=== PATIENT | female | born 1955 | race Caucasian/White ===

== ENCOUNTER 2021-01-11 05:38 | Emergency (ER) | payer MEDICARE ==
[~2021-01-11] VITALS: Ht 167.6 cm; Wt 81.0 kg
[2021-01-11] MEDS ORDERED: METOPROLOL SUCC25 MG (05:56)
[2021-01-11] MEDS ORDERED: LIPITOR40 MG PO (05:57)
[2021-01-11] MEDS ORDERED: PRILOSEC OTC20 MG PO (05:58)
[2021-01-11] MEDS ORDERED: ESTRACE0.5 MG PO (05:59)
[2021-01-11] MEDS ORDERED: VALTREX500 MG PO (05:59)
[2021-01-11] MEDS ORDERED: PERCOCET 5-3251 EACH PO (06:01)
[2021-01-11] MEDS ORDERED: CYCLOBENZAPRINE10 MG PO (06:04)
== END 2021-01-11 06:13 | disposition home or self-care (01) ==
LOC: ED 05:38
DX: M43.6 Torticollis (principal); Z87.891 Personal history of nicotine dependence; Z88.7 Allergy status to serum and vaccine; Z79.899 Other long term (current) drug therapy
CPT/HCPCS: 99283

== ENCOUNTER 2021-10-11 05:52 | Day surgery (SDC) | payer MEDICARE ==
[~2021-10-11] VITALS: Ht 167.6 cm; Wt 80.5 kg
[~2021-10-11 05:52] MED LIST: CYCLOBENZAPRINE10 MG PO; ESTRACE0.5 MG PO; LIPITOR40 MG PO; METOPROLOL SUCC25 MG; PERCOCET 5-3251 EACH PO; PRILOSEC OTC20 MG PO; VALTREX500 MG PO
[2021-10-11] MEDS ORDERED: CYMBALTA60 MG PO (06:14)
[2021-10-11] MEDS ORDERED: MAGNESIUM30 MG PO (06:15)
--- NOTE | 2021-10-11 07:13 | NUR ---
[id number]: MINDY, BREAST SPECIALIST CALLED FOR CAMISOLE FITTING; MINDY OUT OF OFFICE TODAY DUE TO ILLNESS. 0710: IMAGING TRANSPORTS PT VIA WC AND WARM BLANKETS TO THEIR DEPT AT THIS TIME. PT IV SL.
--- NOTE | 2021-10-11 08:01 | NUR ---
PT BACK TO DS RM 3, LEFT HAND IV FLUSHED EASILY WITH 10 MLS NS AND HOOKED TO LR CONT. LEGS ELEVATED IN BED TO HELP WITH LOWER BACK PAIN. LILO HUGGER ON WARM WITH WARM BLANKETS. VERBAL ORDERS RECEIVED FROM WILIAN OAKLEY FOR PO PAIN MEDICATION. PT STATES THAT SHE TOLERATES PERCOCET ON EMPTY STOMACH DAILY FOR CHRONIC PAIN.
--- NOTE | 2021-10-11 08:51 | NUR ---
CHECKING ON PT-SHE HAS BEEN TAKEN TO IMAGING. WILL FOLLOW NEEDED
--- NOTE | 2021-10-11 12:10 | NUR ---
10/11/21 1210 Parul Lazcano 1143 PT ARRIVED TO PACU ON 10L VIA MASK WITH ORAL AIRWAY IN PLACE. RESP EVEN AND UNLABORED. VSS. 1146 PT WAKES AND ORAL AIRWAY REMOVED. PT ENCOURAGED TO DEEP BREATH AND COUGH. PT REPORTS PAIN /10 AND PT GRMACING. 1148 O2 REMOVED. 1153 PAIN MEDICATION GIVEN PER EMAR, HOB INCREASED. PT REPORTS CHRONIC PAIN AT HOME NO BETTER THEN 4-5 WITH PAIN MEDICATION. 1202 PT REPORTS NO CHANGE IN PAIN, 07/08. 1205 PT ASLEEP AND O2 DECREASED TO 80S. PT WAKES AND SIPPING WATER. DEEP BREAHTING ENCOURAGED AND O2 INCREASED TO HIGH 90S. PAIN MEDICATION AND BREATHING EDUCATION GIVEN. 1209 PT RESTING IN BED AND REPORTS NO CHANGE IN PAIN. ICE PLACED PER REQUEST AND .
[2021-10-11] MEDS ORDERED: HYDROMORPHONE HC4 MG PO (12:14)
[2021-10-11] MEDS ORDERED: IBUPROFEN600 MG PO (12:14)
[2021-10-11] MEDS ORDERED: ACETAMINOPHEN500 MG PO (12:15)
--- NOTE | 2021-10-11 12:56 | NUR ---
PT ARRIVES TO DS RM 3 AWAKE AND ALERT FROM PACU. PT STATES PAIN IN RIGHT BREAST 8/10 WHEN ASKED AND DENIES NAUSEA. PT TOLTERATES PO WELL WITH NO NAUSEA. ICE TO RIGHT BREAST. DC CRITERIA EXPLAINED AND CALL LIGHT WITHIN REACH.
--- NOTE | 2021-10-11 13:59 | NUR ---
PT SITTING UPRIGHT ON PERSONAL CELLPHONE. PT TOLERATES 100% OF LUNCH AND DENIES ANY NAUSEA. PT STATES PAIN IS "BETTER" AND RATES 6/10. PT FRIEND COMES TO HOSPITAL TO MANAGER DIALYSIS PAIN PRESCRIPTION AND TAKE TO PHARMACY PER PT REQUEST. CALL LIGHT WITHIN REACH.
--- NOTE | 2021-10-11 15:46 | NUR ---
[id number]: PT USES CALL LIGHT TO ALERT DS STAFF OF URGE TO VOID. PT SITS AT SIDE OF BED PRIOR TO STANDING, DENIES NAUSEA OR DIZZINESS. PT AMBULATES STEADY WITH RN ASSIST, ABLE TO VOID APPROX 550 MLS BRIGHT YELLOW URINE. BACK TO DS RM 3 TO GET DRESSED. ICE BAG REFILLED. [id number]: PT CONTACTS SIOMARA MARTINEZ FOR SAFE RIDE HOME. DC INSTRUCTIONS PRESENTED TO PT AND BROTHER. PT DC VIA WC FROM DS RM 3 TO BROTHER'S VEHICLE IN PARKING LOT TO HOME.
--- NOTE | 2021-10-12 10:08 | OR ---
[facility] [address], [place] [address] Signed DATE OF OPERATION: 10/11/2021 SURGEON: Leatha Plaza MD PREOPERATIVE DIAGNOSES: 1. Right medial upper infiltrating ductal breast carcinoma. 2. History of bilateral breast augmentation (2002). POSTOPERATIVE DIAGNOSES: 1. Right medial upper infiltrating ductal breast carcinoma. 2. History of bilateral breast augmentation (2002). 3. Negative sentinel lymph node biopsies x2 on frozen (Dr. Tee). PROCEDURES: 1. Right breast injection of methylene blue dye for sentinel lymph node identification. 2. Right deep axillary lymph node biopsy x2. 3. Right needle localized partial mastectomy (upper inner aspect). ANESTHESIA: General LMA; Yeison Figueroa CRNA INDICATIONS: This 66-year-old white woman is a patient of Dr. Karin Do, and has undergone bilateral breast implantation (breast augmentation) in 2002. She has had no problem with her implants. She is noted to have on mammography an abnormality in the upper medial aspect of the right breast. Ultrasound was performed and ultimately an ultrasound-guided core biopsy performed by Dr. Tee showing the finding to be infiltrating ductal breast carcinoma, grade 2/3. There was no associated DCIS and receptors were positive (ER/VA positive). Clinical exam shows no sign of axillary adenopathy and there is no palpable mass in the right breast or elsewhere. Preoperative chest x-ray was normal. She has reviewed with me her options of management and at this time we anticipate needle localized partial mastectomy with postoperative radiation therapy. Additionally, sentinel lymph node biopsies will be obtained with both radionuclide and methylene blue dye injection techniques. The risks of bleeding, infection, need for additional surgery, or treatment including chemotherapy in addition to radiation therapy depending on the pathologic findings were all reviewed in detail. Additionally, special risks regarding post radiation capsular Electronically Signed By: LEATHA PLAZA MD 10/12/21 1008 PATIENT NAME: CHRIS WEST OPERATIVE REPORT DATE OF : 55 REPORT #: [id number] PHYSICIAN: LEATHA PLAZA MD PCP: KARIN DO MD REPORT IS CONFIDENTIAL AND NOT TO BE RELEASED WITHOUT AUTHORIZATION [facility] [address], [place] [address] Signed contracture of the right breast related to the implant was reviewed. I have reviewed the case with Dr. Erich Gorman previously as well. He is the anticipated provider of postoperative radiation therapy of course. Understanding all of that she wished to proceed with operation. FINDINGS: Good radionuclide uptake was taken into the right axilla and good uptake of methylene blue dye as well. Two lymph nodes, one larger than the other were excised and frozen pathology by Dr. Tee showed no evidence of metastatic disease. Wire localization was required as the lesion was nonpalpable. The needle entered through the upper outer aspect on the right, extended to the upper medial portion of the breast. Wide resection was undertaken of the breast tissue with needle guidance and excision was clinically negative for the residual disease. Frozen pathology of the sentinel lymph node showed no evidence of metastatic disease. The breast tissue excised with specimen radiograph confirmed that the preoperative marker was in the specimen and the nodule itself was identified as well and completely resected. DESCRIPTION OF PROCEDURE: The patient was brought to the operating room, given a general anesthetic by LMA technique. Preoperative antibiotic Ancef was given. Sequential compression device stockings used and heparin subcutaneously administered. 2 mL of methylene blue dye was injected in the subepithelial space in the 11 oclock position of the right areola. A circumareolar incision from prior surgical intervention was noted. An inframammary incision was noted too, no doubt related to prior breast implantation. The right breast and axilla were prepared with a Betadine based solution and draped sterilely. Interrogation of the right axilla with the steril covered C-Trak probe was undertaken showing a strong signal in the mid axilla. A small transverse incision was made and dissection carried to subcutaneous tissue with electrocautery and blunt dissection. Separation of the axillary soft tissue with a tonsil clamp demonstrated blue lymphatics indicating good uptake of the dye into the axillary lymph nodes. Dissection was followed along the blue lymphatics identifying a 2 cm lymph node. Another small lymph node was associated with it. Both were excised in continuity with electrocautery and hemostasis secured with clips. The two lymph nodes were marked and passed for frozen pathology subsequently noted to be negative for metastatic disease. Additional examination of the axilla did not show strong signal for radionuclide. Further dissection was undertaken with blunt dissection showing no additional blue lymphatics and on that basis, the axillary wound was packed with laparotomy pad and plans made for excision of the primary tumor. The wire entered the superior lateral aspect of the breast and was directed in the deep Electronically Signed By: LEATHA PLAZA MD 10/12/21 1008 PATIENT NAME: CHRIS WEST OPERATIVE REPORT DATE OF : 55 REPORT #: [id number] PHYSICIAN: LEATHA PLAZA MD PCP: KARIN DO MD REPORT IS CONFIDENTIAL AND NOT TO BE RELEASED WITHOUT AUTHORIZATION [address] [address] Signed medial superior portion. A transverse incision was made along the line of skin tension to the medial aspect of the midline areola. Dissection was carried through the subcutaneous tissue with electrocautery and using blunt dissection, the wire delivered into the wound. An Allis clamp was applied to the wire and the parenchyma and with meticulous care, a conical excision was undertaken following the wire both deeply and medially. Wide resection deeply and medially was required to totally encompass the area in question of the wire. Once excised, the specimen was marked with a short stitch superior and a long stitch laterally. Irrigation was undertaken in the depths of the wound. The muscular capsule over the breast implant was easily identified and completely unharmed. By this point, the frozen pathology report from axillary lymph nodes was returned showing no evidence of metastatic disease. Shortly thereafter, the specimen xray report confirmed that the nodule and the marking clip had been excised fully in the specimen submitted. Irrigation was undertaken with sterile water. There was no sign of untoward bleeding. The wound was closed with interrupted 2-0 Vicryl in the deep parenchymal layer and the skin closed with running subcuticular 3-0 Vicryl. In the axilla, similar closure was undertaken once hemostasis was assured. Steri-Strips were applied to both wounds as were Acticoat dressings. The patient was ultimately extubated and transferred back to the recovery room in good condition having suffered no known complications. Blood loss was minimal, probably less than 10 mL in aggregate. MD NABIL Lorenzana/CASSY /[id number] cc: Dr. Karin Tee [facility] Anni Mane MD Electronically Signed By: LEATHA PLAZA MD 10/12/21 1008 PATIENT NAME: CHRIS WEST OPERATIVE REPORT DATE OF : 55 REPORT #: [id number] PHYSICIAN: LEATHA PLAZA MD PCP: KARIN DO MD REPORT IS CONFIDENTIAL AND NOT TO BE RELEASED WITHOUT AUTHORIZATION [address] [place], [place] [address] Signed Copies: ANNI MANE MD ~ Electronically Signed By: LEATHA PLAZA MD 10/12/21 1008 PATIENT NAME: CHRIS WEST OPERATIVE REPORT DATE OF : 55 REPORT #: [id number] PHYSICIAN: LEATHA PLAZA MD PCP: KARIN DO MD REPORT IS CONFIDENTIAL AND NOT TO BE RELEASED WITHOUT AUTHORIZATION
--- NOTE | 2021-10-13 15:14 | PATH ---
[facility] [address] [facility] [place], [place] [address] Signed SPECIMEN(S): A SENTINEL LYMPH NODE 1 AND 2 SPECIMEN(S): B LUMPECTOMY RIGHT BREAST SPECIMEN SOURCE: A. SENTINEL LYMPH NODE 1 AND 2 B. LUMPECTOMY RIGHT BREAST CLINICAL HISTORY: Infiltrating duct carcinoma (stitch pavon nodes). Right breast lumpectomy with needle localization, SLN biopsy with possible axillary dissection with IOPC. Specimen Time to Fixation- 10/11/2021 11:30:00 AM FROZEN SECTION DIAGNOSIS: A. Paloma lymph node #1 and #2:Two lymph nodes, negative for metastatic carcinoma. (Dr. Tee, 10/11/2021 at 1128 hrs.) FB (under the direct supervision of a pathologist) The Gross Description was prepared using a voice recognition system. The report was reviewed for accuracy; however, sound-alike word errors, addition and/or deletions may occur. If there is any question about this report, please contact Client Services. FINAL PATHOLOGIC DIAGNOSIS: A. Lymph nodes, sentinel #1 and #2, excision: - Three lymph nodes, negative for metastatic carcinoma (0/3). B. Breast, right, lumpectomy: - Invasive ductal carcinoma with the following features: - Tumor site: 1 o'clock (per prior biopsy report). - Tumor size: 8 mm in greatest dimension, see comment. - Histologic type: Invasive carcinoma of no special type (ductal). - Histologic grade: - Glandular differentiation score: 2. - Nuclear pleomorphism: Score 2. - Mitotic rate: Score 1. - Overall grade: 1 of 3 (total score 5 of 9). - Tumor focality: Single focus of invasive carcinoma. - Associated in situ component: Absent. - Margins: Uninvolved by invasive carcinoma. - Distance to closest margin: 7 mm, anterior margin. - Regional lymph nodes (includes part A): - Uninvolved by tumor cells. PATIENT NAME: SOL LEWIS PATHOLOGY DATE OF : 55 REPORT #: [id number] PHYSICIAN: DOTTIE MONTELONGO PCP: FLORENCE DO MD REPORT IS CONFIDENTIAL AND NOT TO BE RELEASED WITHOUT AUTHORIZATION [facility] [address] [place], [place] [address] Signed - Total number of lymph nodes examined: 3. - Number of sentinel lymph nodes examined: 3. - Treatment effect: No known presurgical therapy. - Lymph vascular invasion: Not identified. - Microcalcifications: Present in invasive carcinoma. - Additional pathologic findings: Biopsy site changes, fat necrosis. - Ancillary studies: Please refer to studies previously performed ([id number]) which were reported as ER positive, SD positive, HER2 negative by IHC. - Surgical pathology stage: pT1b pN0 (sn). COMMENT: A) Immunohistochemical stains for AE1/AE3 are performed on multiple blocks and support the above interpretation. B) Tumor size measurement is based on microscopic review in conjunction with the reported radiologic findings. BRP:LUPEF:cml:C1NR MICROSCOPIC EXAMINATION: Histologic sections of all submitted blocks are examined by light microscopy. These findings, together with the gross examination, support the pathologic diagnosis. GROSS DESCRIPTION: Two specimens are received in two containers, labeled "LewisSol." A. The specimen, labeled "Sol Lewis, sentinel lymph nodes #1 and #2," is received fresh for frozen section diagnosis and consists of a 3.8 x 2.1 x 1.1 cm oriented portion of yellow-philippe fibroadipose tissue. Two sutures boni the possible lymph nodes that measure 1.7 and 1.3 cm in greatest dimension. One lymph node is inked for distinction. Portions of the lymph node are similar from frozen section resubmitted as received in cassettes A1 and A2. The remainder of the lymph node tissue submitted in cassette A3. Only adipose tissue remains within the container. B. The specimen, labeled "Sol Lewis," and designated on the requisition "lump right breast long stitch is lateral, short stitch is superior," is received in formalin and consists of a 50 gram oriented portion of yellow-philippe fibroadipose tissue that is 7.4 x 6.3 x 4.4 cm and has a metal localization wire that enters laterally. A short suture is present and identifies the superior margin; a long suture identifies the lateral margin. PATIENT NAME: SOL LEWIS PATHOLOGY DATE OF : 55 REPORT #: [id number] PHYSICIAN: DOTTIE PATHOLOGY PCP: FLORENCE DO MD REPORT IS CONFIDENTIAL AND NOT TO BE RELEASED WITHOUT AUTHORIZATION [facility] [address] [place] [address] Signed The specimen is inked as follows: superior - blue; inferior - green; medial - red; lateral - orange; anterior - yellow; and posterior - black. The specimen is serially sectioned from medial to lateral into 14 slices revealing a 1.0 x 1.2 x 0.9 cm white stellate mass, present in slices 8-10 with an adjacent biopsy cavity in slices 10-11. The mass is, 1.1 cm from the anterior soft tissue margin, 1.0 cm from the posterior soft tissue margin, 2.2 cm from the superior soft tissue margin, 1.8 cm from the inferior soft tissue margin, 3.4 cm from the medial soft tissue margin, and 1.9 cm from the lateral soft tissue margin. A metallic junaid is present in slice 10 within the biopsy cavity Approximately 95% of the remaining specimen is a yellow-philippe greasy adipose tissue and 5% is a white-philippe delicate fibrous tissue. [employer] sections are submitted in 10 cassettes. Cassette summary: (B1-B3) slice nine with mass (B4-B6) slice 10 with mass and adjacent biopsy cavity (B7) fibroadipose tissue, medial to mass, slice seven (B8) fibroadipose tissue, lateral to mass, slice 11 (B9) slice one, medial soft tissue resection margin, perpendicular (B10) slice 14, lateral soft tissue resection margin, perpendicular. Cold ischemia time: 14 minutes Approximate Formalin time: 12-24 hours. ADDITIONAL NOTES: Immunohistochemical and/or in situ hybridization studies were performed on this case with the appropriate positive controls that react as expected. This test was developed and its performance characteristics determined by [facility] [employer]. It has not been cleared or approved by the U.S. Food and Drug Administration. The FDA has determined that such clearance or approval is not necessary. This test is used for clinical purposes. It should not be regarded as investigational or for research. [facility] is certified under the Clinical Laboratory Improvement Amendments of 1988 (CLIA) as qualified to perform high complexity clinical laboratory testing. This assay has not been validated for specimens that have been decalcified. PERFORMING LABORATORY: The technical component was performed by [facility], [address] [place] [address] (Cdl Program Coordinator: Chelsie De Luna MD; CLIA# [id number]). PATIENT NAME: SOL LEWIS PATHOLOGY DATE OF : 55 REPORT #: [id number] PHYSICIAN: DOTTIE MONTELONGO PCP: FLORENCE DO MD REPORT IS CONFIDENTIAL AND NOT TO BE RELEASED WITHOUT AUTHORIZATION [place] [id number] [place] [address] Signed Frozen section performed at [facility], [address] [place] [address] (CLIA# [id number]). Professional interpretation was performed by [facility], [address] [place] [address] (CLIA# [id number]). Diagnostician: Garcia Tee MD Pathologist Electronically Signed 10/13/2021 Copies: ~ PATIENT NAME: SOL LEWIS PATHOLOGY DATE OF : 55 REPORT #: [id number] PHYSICIAN: DOTTIE MONTELONGO PCP: FLORENCE DO MD REPORT IS CONFIDENTIAL AND NOT TO BE RELEASED WITHOUT AUTHORIZATION
== END 2021-10-11 15:05 | disposition home or self-care (01) ==
LOC: DS 05:52 → US 07:00 → EDSTATUS 07:00 → DS 15:05
PROVIDERS: ATTEND Surgery
PROC: 0HBT0ZZ Excision of Right Breast, Open Approach (ICD-10-PCS; principal; 2021-10-11 08:45)
PROC: 07B50ZX Excision of Right Axillary Lymphatic, Open Approach, Diagnostic (ICD-10-PCS; 2021-10-11 08:45)
DX: C50.211 Malignant neoplasm of upper-inner quadrant of right female breast (principal); K21.9 Gastro-esophageal reflux disease without esophagitis; F32.A Depression, unspecified; F17.210 Nicotine dependence, cigarettes, uncomplicated; Z88.1 Allergy status to other antibiotic agents; Z98.82 Breast implant status
CPT/HCPCS: 19285; 76098; 77065; J0131; J0690; J1100; J1644; J1885; J2001; J2250; J2405; J2704; J3010; J7121; Q9968

== ENCOUNTER 2022-02-08 07:50 | Day surgery (SDC) | payer MEDICARE ==
[~2022-02-08] VITALS: Ht 167.6 cm; Wt 80.9 kg
[~2022-02-08 07:50] MED LIST changes: +ACETAMINOPHEN500 MG PO; +ANASTROZOLE1 MG PO; +CYMBALTA60 MG PO; +ESTRADIOL0.5 MG PO; +HYDROMORPHONE HC4 MG PO; +IBUPROFEN600 MG PO; +MAGNESIUM30 MG PO; +MULTI VITAMIN1 EACH PO
[2022-02-08] MEDS ORDERED: VITAMIN D-40010 MCG PO (08:07)
--- NOTE | 2022-02-08 09:20 | NUR ---
02/08/22 0920 Maria Luisa Portillo 0914 PATIENT ARRIVES TO PACU UNRESPONSIVE TO VERBAL STIMULI. RESP EVEN AND UNLABORED, MASK AT 6 LITERS.
--- NOTE | 2022-02-08 15:55 | OR ---
[facility] [address] [place], [place] [address] Signed DATE OF OPERATION: 02/08/2022 SURGEON: Cheryl Ochoa MD PREOPERATIVE DIAGNOSES: 1. Personal history of colonic polyps in 2013. 2. Lifelong chronic constipation. 3. Occasional diarrhea. POSTOPERATIVE DIAGNOSIS: A 4 mm polyp at 7 cm. PROCEDURE: Colonoscopy with hot biopsy. ESTIMATED BLOOD LOSS: None. INDICATIONS: Sol is a 66-year-old female, asked to see me for her third colonoscopy. She previously lived in [place]. She has chronic back issues and has to take Percocet on a daily basis along with marijuana cream. She also has a history of paroxysmal supraventricular tachycardia that was ablated twice. Therefore, she is in need of monitored anesthesia care. Her first colonoscopy came in [address] Becker and was told she had colonic polyps removed. Dr. Becker repeated the colonoscopy in 2017 at the age of 61 and removed additional hyperplastic polyps. Unfortunately, we only have sparse records. Sol also describes lifelong constipation, occasionally she has diarrhea. There is no family history of colon cancer or polyps. In the office, I gave her a pamphlet on colon polyps and cancer as well as colonoscopy. She understands the nature of the colonoscopy. There is risk including, but not limited to gas bloating, crampy abdominal pain, bleeding, perforation requiring surgery, and missed diagnosis. She had expressed understanding and wished to proceed. DESCRIPTION OF PROCEDURE: Sol was taken into our endoscopy suite and placed in the left lateral decubitus position. She was given monitored anesthesia care per our nurse director fundraising. A digital rectal exam was performed and this was unremarkable. The adult colonoscope was introduced and advanced under direct visualization of the camera. It took a few minutes to get around into her cecum. Her prep was quite good. We could easily see the appendiceal orifice and the ileocecal valve. The scope was then slowly withdrawn. We Electronically Signed By: CHERYL OCHOA MD 02/08/22 1555 PATIENT NAME: SOL WEST OPERATIVE REPORT DATE OF : 55 REPORT #: [id number] PHYSICIAN: CHERYL OCHOA MD PCP: KARIN DO MD REPORT IS CONFIDENTIAL AND NOT TO BE RELEASED WITHOUT AUTHORIZATION [address] [address] Signed took pictures throughout for photodocumentation. There was no diverticulosis. There were no colon polyps. We found one tiny 4 mm polyp in the rectum at about 7 cm. It was easily removed with the help of hot biopsy forceps. The scope had been retroflexed in the rectum and we could see a little or no hemorrhoid tissue around the anus. After this, the gas was suctioned out. The colonoscope removed. Sol tolerated the procedure quite well. RECOMMENDATIONS: I will see Sol back in my office in 7 to 14 days to review her results. We will also review her records from [place]. Cheryl Ochoa MD ALB/MODL /[id number] cc: MD Dr. Karin Stinson Patient's Chart Copies: CHERYL OCHOA MD ~ Electronically Signed By: CHERYL OCHOA MD 02/08/22 1555 PATIENT NAME: SOL WEST OPERATIVE REPORT DATE OF : 55 REPORT #: [id number] PHYSICIAN: CHERYL OCHOA MD PCP: KARIN DO MD REPORT IS CONFIDENTIAL AND NOT TO BE RELEASED WITHOUT AUTHORIZATION
--- NOTE | 2022-02-09 11:46 | PATH ---
[facility] [address] [place], [place] [address] Signed SPECIMEN(S): A RECTAL POLYP SPECIMEN SOURCE: A. RECTAL POLYP CLINICAL HISTORY: Colonoscopy. History of colon polyps. Postop: Rectal polyp. FINAL PATHOLOGIC DIAGNOSIS: Rectum, polyp, polypectomy: - Hyperplastic polyp. - Negative for dysplasia or malignancy. NAL:cml:C2NR MICROSCOPIC EXAMINATION: Histologic sections of all submitted blocks are examined by light microscopy. These findings, together with the gross examination, support the pathologic diagnosis. GROSS DESCRIPTION: The specimen, labeled "CH, 1," and designated on the requisition "rectum polypectomy," is received in formalin and consists of one fragment of pink-philippe tissue (0.2 cm in greatest dimension). The specimen is submitted entirely in cassette (A1). AC (under the direct supervision of a pathologist) The Gross Description was prepared using a voice recognition system. The report was reviewed for accuracy; however, sound-alike word errors, addition and/or deletions may occur. If there is any question about this report, please contact Client Services. PERFORMING LABORATORY: The technical component was performed by [facility], [address] [place] [address] (CLIA# [id number]). Professional interpretation was performed by [facility], [address] [address] (CLIA# [id number]). Diagnostician: Kelsey Pierce MD Pathologist Electronically Signed 02/09/2022 PATIENT NAME: CHRIS WEST PATHOLOGY DATE OF : 55 REPORT #: [id number] PHYSICIAN: DOTTIE PATHOLOGY PCP: FLORENCE DO MD REPORT IS CONFIDENTIAL AND NOT TO BE RELEASED WITHOUT AUTHORIZATION [address] [place], [place] [address] Signed Copies: ~ PATIENT NAME: CHRIS WEST PATHOLOGY DATE OF : 55 REPORT #: [id number] PHYSICIAN: DOTTIE PATHOLOGY PCP: FLORENCE DO MD REPORT IS CONFIDENTIAL AND NOT TO BE RELEASED WITHOUT AUTHORIZATION
== END 2022-02-08 09:40 | disposition home or self-care (01) ==
LOC: DS 07:50 → OPS 07:50 → DS 09:45 → OPS 09:45
PROVIDERS: ATTEND Colon & Rectal Surgery
PROC: 0DBP8ZX Excision of Rectum, Via Natural or Artificial Opening Endoscopic, Diagnostic (ICD-10-PCS; principal; 2022-02-08 09:45)
DX: K62.1 Rectal polyp (principal); K59.09 Other constipation; R19.7 Diarrhea, unspecified; F17.210 Nicotine dependence, cigarettes, uncomplicated; E78.5 Hyperlipidemia, unspecified; I47.1 Supraventricular tachycardia; G89.29 Other chronic pain; Z20.822 Contact with and (suspected) exposure to COVID-19; Z88.1 Allergy status to other antibiotic agents; Z88.5 Allergy status to narcotic agent
CPT/HCPCS: J2704; J7121

== ENCOUNTER 2024-10-01 07:31 | Emergency (ER) | payer OTHER, MEDICARE ==
[~2024-10-01] VITALS: Ht 167.6 cm; Wt 84.0 kg
[~2024-10-01 07:31] MED LIST changes: +VITAMIN D-40010 MCG PO
[2024-10-01] MEDS ORDERED: CYCLOBENZAPRINE10 MG PO (08:05)
[2024-10-01 09:34] VITALS: BP 141/62
== END 2024-10-01 09:09 | disposition home or self-care (01) ==
LOC: ED 07:31
DX: M25.562 Pain in left knee (principal); E78.00 Pure hypercholesterolemia, unspecified; Z87.891 Personal history of nicotine dependence; Z88.1 Allergy status to other antibiotic agents; Z88.5 Allergy status to narcotic agent; Z79.899 Other long term (current) drug therapy; X50.1XXA Overexertion from prolonged static or awkward postures, initial encounter
CPT/HCPCS: 73560; 99283

== ENCOUNTER 2024-12-14 11:08 | Observation (INO) | payer OTHER, MEDICARE ==
[~2024-12-14] VITALS: Ht 167.6 cm; Wt 83.1 kg
[2024-12-14] MEDS ORDERED: ALBUTEROL/IPRATROPIUM 3 ML NEB INH PRN (11:30)
[2024-12-14] MEDS ORDERED: methylPREDNISolone SOD SUCC 125 MG/2 ML VIAL IV ONE (11:45)
[2024-12-14] MEDS ORDERED: BENZONATATE100 MG PO (11:46)
[2024-12-14] MEDS ORDERED: PREDNISONE20 MG PO (11:46)
[2024-12-14] MEDS ORDERED: VENTOLIN HFA18 GM INH (11:46)
[2024-12-14 11:52] LABS: BASOPHILS 0.9 % (0-2); EOSINOPHILS 7.9 % (0-6); HEMATOCRIT 43.4 % (35.0-50.0); HEMOGLOBIN 14.3 g/dL (12.0-18.0); LYMPHOCYTES 31.2 % (24-44); MCH 32.1 (27-36); MCV 97.2 fl (81-99); MONOCYTES 6.5 % (0-12); NEUTROPHILS 53.5 % (39-80); PLATELET COUNT 285 K/uL (140-440); RBC 4.47 M/ul (4.3-5.7); RDW 15.8 (10.5-15.0)
[2024-12-14 12:12] LABS: ALBUMIN 3.7 g/dL (3.4-5.0); ALBUMIN/GLOBULIN RATIO 1.12 (1.1-2.4); ANION GAP 11.6 (7-21); BILIRUBIN, TOTAL 0.6 mg/dL (0.2-1.0); BUN/CREATININE RATIO 18.75 (6.0-28.6); CALCIUM 9.7 mg/dL (8.5-10.1); CREATININE, SERUM 0.8 mg/dL (0.55-1.02); MAGNESIUM 1.9 mg/dL (1.8-2.4); POTASSIUM 3.6 mmol/L (3.5-5.1)
[2024-12-14] MEDS ORDERED: ALBUTEROL SULFATE 0.5% 2.5 MG/0.5 ML VIAL INH ONE (12:30)
[2024-12-14 12:40] LABS: LACTIC ACID, BLOOD 1.3 mmol/L (0.4-2.0)
[2024-12-14 13:48] LABS: INFLUENZA B NAA NEGATIVE (NEGATIVE); RESPIRATORY SYNCYTIAL VIR NAA NEGATIVE (NEGATIVE)
[2024-12-14 16:14] VITALS: BP 135/67
[2024-12-14] MEDS ORDERED: PANTOPRAZOLE SODIUM 40 MG TABEC PO SCH (16:15)
[2024-12-14] MEDS ORDERED: ondansetron HCL 4 MG/2 ML VIAL IV PRN (17:00)
[2024-12-14] MEDS ORDERED: LACTATED RINGER'S 1,000 ML IV SCH (17:00)
[2024-12-14] MEDS ORDERED: GUAIFENESIN/DEXTROMETHORPHAN 5 ML SYRUP PO PRN (17:00)
[2024-12-14] MEDS ORDERED: ACETAMINOPHEN 500 MG TAB PO PRN (17:15)
--- NOTE | 2024-12-14 17:49 | NUR ---
SPOT CHECKING 02 SATS 95% ON 2 L NC. PT TOLERATES 100% OF EVENING MEAL RESTING IN BED NOW.
[2024-12-14] MEDS ORDERED: ALBUTEROL SULFATE 0.083% 3 ML VIAL INH PRN (18:15)
[2024-12-14 18:27] VITALS: BP 142/63
--- NOTE | 2024-12-14 18:30 | EKG ---
[facility] [address] [facility] [place] [address] Signed Sinus tachycardia Otherwise normal ECG No previous ECGs available Confirmed by Rudi Sanchez MD ([id number]) on 12/14/2024 6:29:51 PM Electronically Signed By: RUDI SANCHEZ MD 12/14/241829 PATIENT NAME: CHRIS WEST Electrocardiogram DATE OF : 55 PHYSICIAN: RUDI SANCHEZ MD REPORT #: [id number] REPORT IS CONFIDENTIAL AND NOT TO BE RELEASED WITHOUT AUTHORIZATION
[2024-12-14 18:36] VITALS: BP 142/63
[2024-12-14] MEDS ORDERED: ALBUTEROL/IPRATROPIUM 3 ML NEB INH SCH (20:00)
[2024-12-14 20:13] VITALS: BP 122/60
[2024-12-14 20:14] VITALS: BP 122/60
--- NOTE | 2024-12-14 20:19 | NUR ---
pt in bed, on room air, lungs fine crackles and dim at bases t/o. moist harsh productive cough present, sputum cler yellow. SOB noted with exertion. Pleasnt and cooperative, alert and oriented to all. SL RAC presnt. c/o h/a and rib pain from coughing. Medicated with Tylenol and cough syrup. Melatonin given per insomnia. Independent in room
[2024-12-14] MEDS ORDERED: MELATONIN 3 MG TAB PO PRN (21:00)
[2024-12-14] MEDS ORDERED: DULOXETINE HCL 60 MG CAP PO SCH (21:00)
--- NOTE | 2024-12-14 22:35 | NUR ---
RESTING, EYES CLOSED, NO S/SX DISTRESS. ON ROOM AIR, O2 TUBING AT HANDS REACH, CALM, QUIET, NO COUGH. AT THIS TIME
--- NOTE | 2024-12-15 00:11 | NUR ---
resting, eyes closed, no s/sx distress. O2 at hands reach, on room air. no cough at thist araseli. repositions self in bed
[2024-12-15 02:10] VITALS: BP 120/56
[2024-12-15 02:11] VITALS: BP 120/56
--- NOTE | 2024-12-15 02:23 | NUR ---
Awake, c/o h/a medicated with Tylenol 500mg po and Robitussin per harsh ocassional cough. tolerating liquids well. Up to BRP independent, voiding QS. Using O2 1LNC at this time. SOB noted with exertion.
[2024-12-15 05:13] LABS: BASOPHILS 0.3 % (0-2); EOSINOPHILS 0.3 % (0-6); HEMOGLOBIN 12.7 g/dL (12.0-18.0); LYMPHOCYTES 5.9 % (24-44); MCH 32.3 (27-36); MCHC 33.3 g/dl (30-36); MCV 96.9 fl (81-99); MONOCYTES 5.4 % (0-12); NEUTROPHILS 88.1 % (39-80); PLATELET COUNT 281 K/uL (140-440); RBC 3.92 M/ul (4.3-5.7); RDW 15.7 (10.5-15.0)
[2024-12-15 05:16] VITALS: BP 110/64
[2024-12-15 05:18] LABS: ANION GAP 11.1 (7-21); BUN/CREATININE RATIO 17.56 (6.0-28.6); CALCIUM 9.7 mg/dL (8.5-10.1); CREATININE, SERUM 0.74 mg/dL (0.55-1.02); MAGNESIUM 1.9 mg/dL (1.8-2.4); POTASSIUM 4.1 mmol/L (3.5-5.1)
[2024-12-15 05:43] VITALS: BP 110/64
--- NOTE | 2024-12-15 07:16 | NUR ---
PT ALERT AND INTERACTIVE AT TIME OF SHIFT REPORT. SPOT CHECKING 02 SHE IS 94% ON RA. CONTINUES WITH HARSH COUGH. CALL LIGHT IS IN REACH FRESH H20 TO BEDSIDE PT DENIES ANY OTHER NEEDS OF
--- NOTE | 2024-12-15 08:09 | NUR ---
PT IS UP IN THE CHAIR JUST FINISHED WITH NEB TREATMENT. BREAKFAST AND MORNING MEDS PROVIDED.
--- NOTE | 2024-12-15 08:22 | NUR ---
PATIENT IN BED AT THIS TIME. FASHION STYLIST WENT INTO PATIENTS ROOM FOR HOURLY ROUNDS. FASHION STYLIST ASSISTED PATIENT TO CHAIR. CALL LIGHT WITHIN REACH, NO FURTHER NEEDS AT THIS TIME.
[2024-12-15] MEDS ORDERED: methylPREDNISolone SOD SUCC 40 MG/ML VIAL IV SCH (09:00)
[2024-12-15] MEDS ORDERED: ENOXAPARIN SODIUM 40 MG/0.4 ML SYR SUB-Q SCH (09:00)
[2024-12-15 09:23] VITALS: BP 123/65
--- NOTE | 2024-12-15 09:24 | NUR ---
PATIENT IN BED AT THIS TIME. COSMETICS MACHINE OPERATOR CHARTED VITALS AND I&O'S. PATIENT DECLINED HAVING A SHOWER TODAY. CALL LIGHT WITHIN REACH, NO FURTHER NEEDS AT THIS TIME.
--- NOTE | 2024-12-15 09:34 | NUR ---
UR CLINICAL REVIEW: [facility]- PER [facility] REVIEW MEETS CRITERIA FOR VIRAL ILLNESS OBS CARE DUE TO TACHPNEA AND TACHYCARDIA [facility] OBS 12/14/24 @ 1549 ORDER MATCHES REG NO AUTH REQUIRED PER [place] GUIDELINES DISCHARGE TO HOME POSSIBLE TODAY 12/16/24
--- NOTE | 2024-12-15 09:59 | NUR ---
PT IS UP IN THE CHAIR BREATHING EVEN AND UNLABORED DENIES NEEDS AT THIS TIME
[2024-12-15 10:15] VITALS: BP 123/65
--- NOTE | 2024-12-15 11:05 | NUR ---
DR LEE IN TO SEE PT DISCUSSES PLAN GOING FORWARD. PT TO C/T VIA W/C
[2024-12-15] MEDS ORDERED: PHARMACY RENAL DOSE ADJUSTMENT 1 DOSE MISC PO SCH (12:00)
[2024-12-15] MEDS ORDERED: PREDNISONE10 MG PO (12:29)
--- NOTE | 2024-12-15 12:43 | NUR ---
PT NOT AVAILABLE FOR VISIT. PROVIDED PRAYER.
--- NOTE | 2024-12-15 13:25 | NUR ---
INTO SEE PATIENT. PATIENT PERSONAL INFORMATION REVIEWED. PATIENT LIVES ALONE IN AN APARTMENT. RAMP TO GET INTO. DENIES DME. HAS FRIEND MILDRED PICKING HER UP. PATIENT DENIES DIFFCULTY PAYING UTILITIES OR OBTAINING FOOD. DOES DRIVE AT [place]ELINE. DENIES ANY NEEDS FROM CM.
[2024-12-16] MEDS ORDERED: MAXI-TUSS AC L473 ML PO (10:47)
== END 2024-12-15 13:15 | disposition home or self-care (01) ==
LOC: ED 11:08 → MS 11:10
PROVIDERS: Emergency Medicine; ADMIT Student in an Organized Health Care Education/Training Program; ATTEND Student in an Organized Health Care Education/Training Program
DX: R09.02 Hypoxemia (principal); K21.9 Gastro-esophageal reflux disease without esophagitis; F39 Unspecified mood [affective] disorder; B00.9 Herpesviral infection, unspecified; R05.3 Chronic cough; J40 Bronchitis, not specified as acute or chronic; Z87.891 Personal history of nicotine dependence; Z88.5 Allergy status to narcotic agent; Z88.8 Allergy status to other drugs, medicaments and biological substances
CPT/HCPCS: 36415; 71045; 71260; 80048; 80053; 83605; 83735; 83880; 84484; 85025; 85379; 87040; 87502; 94640; 94760; 96372; 96374; 96376; 99285-25; A9270; G0378; J1650; J2919; Q9967; U0002

== ENCOUNTER 2025-09-10 18:28 | Emergency (ER) | payer MEDICARE ==
[~2025-09-10] VITALS: Ht 167.6 cm; Wt 80.0 kg
[~2025-09-10 18:28] MED LIST changes: +BENZONATATE100 MG PO; +MAXI-TUSS AC L473 ML PO; +PREDNISONE10 MG PO; +PREDNISONE20 MG PO; +VENTOLIN HFA18 GM INH
[2025-09-10] MEDS ORDERED: FAMOTIDINE 20 MG/ 2 ML VIAL IV ONE (21:30)
[2025-09-10 21:35] LABS: BASOPHILS 0.2 % (0.1-1.2); EOSINOPHILS 0.3 % (0.7-5.8); LYMPHOCYTES 7.1 % (19.3-51.7); MCH 31.7 PG (25.6-32.2); MCHC 34.0 g/dL (32.2-35.5); MCV 93.3 fL (79.4-94.8); MONOCYTES 4.6 % (4.7-12.5); NEUTROPHILS 87.2 % (34.0-71.1); RBC 4.45 M/uL (3.93-5.22)
[2025-09-10 21:35] LABS: BLOOD/HGB, URINE TRACE-I (Negative); KETONE, URINE NEGATIVE (Negative); LEUK ESTERASE, URINE NEGATIVE (negative); NITRITE, URINE POSITIVE (negative)
[2025-09-10 21:38] LABS: INFLUENZA B NAA NEGATIVE (NEGATIVE); RESPIRATORY SYNCYTIAL VIR NAA NEGATIVE (NEGATIVE)
[2025-09-10 21:41] LABS: BACTERIA, URINE 4+ /hpf (negative); CASTS, URINE NONE SEEN \\lpf; CRYSTALS, URINE NONE SEEN (0-1+); EPITHELIAL CELLS, URINE NONE SEEN /lpf (0-1+); REFLEX CULTURE, URINE Yes (No)
[2025-09-10 21:45] LABS: ALT (SGPT) 31.0 U/L (14-59); AST (SGOT) 20.0 U/L (15-37); GLOMERULAR FILTRATION RATE,EST 79.0 mL/min (>60); PROTEIN, TOTAL 6.7 g/dL (6.4-8.2); UREA NITROGEN 16.0 mg/dL (7-18)
[2025-09-10] MEDS ORDERED: LACTATED RINGER'S 1,000 ML IV ONE (21:45)
[2025-09-10] MEDS ORDERED: KETOROLAC TROMETHAMINE 30 MG/ML VIAL IV ONE (21:45)
[2025-09-11] MEDS ORDERED: ACETAMINOPHEN 500 MG TAB PO ONE (00:15)
[2025-09-11] MEDS ORDERED: LACTATED RINGER'S 1,000 ML IV ONE (00:30)
[2025-09-11] MEDS ORDERED: OXYCODONE/APAP 5/325 TAB PO ONE (04:30)
[2025-09-11] MEDS ORDERED: CEPHALEXIN500 M1 PO (08:34)
[2025-09-11 08:58] VITALS: BP 111/55
== END 2025-09-11 08:50 | disposition home or self-care (01) ==
LOC: ED 18:28
PROVIDERS: Internal Medicine
DX: N39.0 Urinary tract infection, site not specified (principal); Q28.3 Other malformations of cerebral vessels; B34.9 Viral infection, unspecified; Z85.3 Personal history of malignant neoplasm of breast; Z79.899 Other long term (current) drug therapy; Z79.52 Long term (current) use of systemic steroids; Z88.1 Allergy status to other antibiotic agents; Z88.5 Allergy status to narcotic agent; Z87.891 Personal history of nicotine dependence
CPT/HCPCS: 36415; 70450; 70553; 71045; 80053; 81001; 83690; 85025; 87077; 87088; 87186; 87502; 96361; 96365; 96375; 99284-25; A9270; A9573; J0696; J1885; J2405; J7121; U0002